=== PATIENT | female | born 1975 ===

== ENCOUNTER 2018-02-22 14:44 | Emergency (ER) | payer BC ==
--- NOTE | 2018-02-22 15:49 | ED ---
Lower Extremity - HPI Summary HPI Summary: Ms. Madden is concerned that she was bitten by something on the back of her left lower leg. It started out as itchy with a rober and has gradually become erythematous and painful. She denies any chest pain or shortness of breath - History of Current Complaint Chief Complaint: UCLowerExtremity Stated Complaint: leg swollen Time Seen by Provider: 02/22/18 15:39 Hx Last Menstrual Period: 01/13/18 Pain Intensity: 6 - Allergies/Home Medications Allergies/Adverse Reactions: Allergies Allergy/AdvReac Type Severity Reaction Status Date / Time No Known Allergies Allergy Verified 02/22/18 15:03 PMH/Surg Hx/FS Hx/Imm Hx Previously Healthy: Yes Endocrine/Hematology History: Denies: Hx Diabetes, Hx Thyroid Disease Cardiovascular History: Denies: Hx Hypertension Respiratory History: Denies: Hx Asthma, Hx Chronic Obstructive Pulmonary Disease (COPD) GI History: Denies: Hx Ulcer - Surgical History Surgery Procedure, Year, and Place: c section Infectious Disease History: No Infectious Disease History: Denies: Hx Hepatitis, Hx Human Immunodeficiency Virus (HIV), Traveled Outside the in Last 30 Days - Social History Alcohol Use: Occasionally Substance Use Type: Reports: None Smoking Status (MU): Never Smoked Tobacco Review of Systems Constitutional: Negative Negative: Fever, Chills Cardiovascular: Negative Negative: Chest Pain Respiratory: Negative Negative: Shortness Of Breath Skin: Other - see HPI All Other Systems Reviewed And Are Negative: No Physical Exam - Summary Physical Exam Summary: She is nontoxic in appearance and her vital signs are stable. Triage Information Reviewed: Yes Vital Signs On Initial Exam: Initial Vitals Temp Pulse Resp BP Pulse Ox 98.2 F 86 18 128/80 99 02/22/18 14:59 02/22/18 14:59 02/22/18 14:59 02/22/18 14:59 02/22/18 14:59 Vital Signs Reviewed: Yes Appearance: Positive: Well-Appearing, No Pain Distress, Well-Nourished Skin: Positive: Warm, Skin Color Reflects Adequate Perfusion - On the superior aspect of her calf, she has a dark spot surrounded by 5 or 6 cm radius of erythema. This area is tender to palpation and indurated and there is no fluctuance., Dry Respiratory/Lung Sounds: Positive: Clear to Auscultation Cardiovascular: Positive: Normal Musculoskeletal: Positive: Normal Neurological: Positive: Normal Diagnostics - Vital Signs Vital Signs Temp Pulse Resp BP Pulse Ox 02/22/18 14:59 98.2 F 86 18 128/80 99 - Laboratory Lab Statement: Any lab studies that have been ordered have been reviewed, and results considered in the medical decision making process. Lower Extremity Course/Dx - Course Course Of Treatment: She looks to me like she is developing a cellulitis secondary to some sort of insect bite. There is no sign of an abscess at this time although it may develop. There is no evidence for DVT. - Diagnoses Provider Diagnoses: Cellulitis Discharge - Sign-Out/Discharge Documenting (check all that apply): Patient Departure All imaging exams completed and their final reports reviewed: Yes - Discharge Plan Condition: Stable Disposition: HOME Patient Education Materials: Cellulitis (ED) Referrals: No Primary Care Phys,NOPCP [Primary Care Provider] - Additional Instructions: Follow up here in 2-3 days for reevaluation please. - Billing Disposition and Condition Condition: STABLE Disposition: Home
== END 2018-02-22 16:00 | disposition home or self-care (01) ==
LOC: UCEAST 14:44
DX: L03.116 Cellulitis of left lower limb (principal)
CPT/HCPCS: 99202; G0463

== ENCOUNTER 2018-02-27 15:38 | Emergency (ER) | payer BC ==
[2018-02-27 15:55] VITALS: BP 129/82
[2018-02-27] MEDS ORDERED: Lidocaine 1% MPF wEPI 200,000* 30 ML SDV INJ ONE (16:09)
--- NOTE | 2018-02-27 16:15 | UC ---
Skin Complaint HPI - HPI Summary HPI Summary: 43 yo female with left leg swelling and pain x > 1 week Initially thought it was an insect bite because it itched She scratched it and developed an area of redness and swelling seen here and started on keflex on day 4 or 5 of keflex and she has not had improvement no f/c no n/v/d no hx of skin infection - History of Current Complaint Chief Complaint: UCLowerExtremity Time Seen by Provider: 02/27/18 16:02 Stated Complaint: L LEG PAIN Hx Obtained From: Patient Hx Last Menstrual Period: [id number] Onset/Duration: Gradual Onset, Lasting Days Skin Exposure Onset/Duration: Days Ago Timing: Constant Onset Severity: Mild Current Severity: Moderate Pain Intensity: 6 Pain Scale Used: 0-10 Numeric Location: Other - left calf Character: Swelling, Pain, Redness Aggravating Factor(s): Touch Alleviating Factor(s): Nothing Associated Signs & Symptoms: Positive: Tenderness. Negative: Nausea, Vomiting, Numbness, Thirst, Diaphoresis, Weakness, Pallor, Shivering, Difficulty Breathing , Fever, Chills, Cough, Wheezing, Chest Pain, Hoarseness, Throat Tightening, Rash, Abdominal Pain, Lightheadedness, Syncope, Drainage, Bruising, Red Streaks , Joint Swelling - Allergy/Home Medications Allergies/Adverse Reactions: Allergies Allergy/AdvReac Type Severity Reaction Status Date / Time No Known Allergies Allergy Verified 02/27/18 15:56 Home Medications: Home Medications Ibuprofen TAB* [Motrin TAB* 400 MG] 400 mg PO Q6H PRN 02/27/18 [History Confirmed 02/27/18] Review of Systems All Other Systems Reviewed And Are Negative: Yes Constitutional: Positive: Negative Skin: Positive: Rash Eyes: Positive: Negative ENT: Positive: Negative Respiratory: Positive: Negative Cardiovascular: Positive: Negative Gastrointestinal: Positive: Negative Genitourinary: Positive: Negative Motor: Positive: Negative Neurovascular: Positive: Negative Musculoskeletal: Positive: Negative Neurological: Positive: Negative Psychological: Positive: Negative PMH/Surg Hx/FS Hx/Imm Hx Previously Healthy: Yes - Surgical History Surgical History: Yes Surgery Procedure, Year, and Place: c section - Family History Known Family History: Positive: Hypertension - Social History Alcohol Use: None Substance Use Type: None Smoking Status (MU): Never Smoked Tobacco Physical Exam Triage Information Reviewed: Yes Appearance: Well-Appearing, No Pain Distress, Well-Nourished Vital Signs: Initial Vital Signs Temp 97.9 F 02/27/18 15:49 Pulse 79 02/27/18 15:49 Resp 16 02/27/18 15:49 BP 129/82 02/27/18 15:49 Pulse Ox 100 02/27/18 15:49 Vital Signs Reviewed: Yes Eyes: Positive: Conjunctiva Clear ENT: Positive: Hearing grossly normal. Negative: Nasal drainage, TMs normal, Trismus, Muffled voice, Dental tenderness Neck: Positive: Supple Respiratory: Positive: No respiratory distress, No accessory muscle use Cardiovascular: Positive: RRR Neurological: Positive: Alert Psychological Exam: Normal Skin Exam: Other - see image Course/Dx - Diagnoses Provider Diagnoses: cellulitis left calf. ? early abscess Procedures - Procedure Summary Procedure Summary: INCISION AND DRAINAGE LEFT CALF procedure explained/any questions answered Time out sterile prep anesth with 2 cclidoc epi small incison with 11 blade no pus culture obtained sterile dressing applied Discharge - Sign-Out/Discharge Documenting (check all that apply): Patient Departure All imaging exams completed and their final reports reviewed: No Studies - Discharge Plan Condition: Stable Disposition: HOME Prescriptions: Sulfamethox/Trimethoprim DS* [Bactrim DS 800/160 TAB*] 1 tab PO BID #14 tab Patient Education Materials: Cellulitis (ED), Warm Compress or Soak (ED) Referrals: No Primary Care Phys,NOPCP [Primary Care Provider] - Additional Instructions: apply heat (warm compress or heating pad) 3-4 x day for 5-10 minutes elevate when you can IF SWELLING OR PAIN WORSENS GO TO THE EMERGENCY ROOM IF YOU DEVELOP A FEVER GO TO THE EMERGENCY ROOM IF NOT SIGNIFICANTLY IMPROVED IN 48-72 HOURS GO TO THE EMERGENCY ROOM I attempted to incise and drain this did not get any pus sent a culture If not improving or if you get worse you may need an ultrasound to see if you have a collection of pus (abscess) - Billing Disposition and Condition Condition: STABLE Disposition: Home Images Front/Back of Body, Lg ([place]): 1 - erthema/swelling. central area of induration about 3x3cm, not fluctuant, no varices, no popliteal tenderness or venous cords, + warmth
[2018-02-27] MEDS ORDERED: Sulfamethox/Trimethoprim DS 800/160* TAB PO ONE (16:39)
--- NOTE | 2018-03-02 15:22 | UC ---
- Progress Note Progress Note: Wound culture left leg MRSA negative, staph aureus negative Gram stain: 1+ neutrophil, 1+ epithelial cells , possible 1+ gram-positive cocci Wound culture: No growth day 2 Patient on Bactrim, no change in plan Discharge - Sign-Out/Discharge Documenting (check all that apply): Post-Discharge Follow Up All imaging exams completed and their final reports reviewed: No Studies - Discharge Plan Condition: Stable Disposition: HOME Prescriptions: Sulfamethox/Trimethoprim DS* [Bactrim DS 800/160 TAB*] 1 tab PO BID #14 tab Patient Education Materials: Cellulitis (ED), Warm Compress or Soak (ED) Referrals: No Primary Care Phys,NOPCP [Primary Care Provider] - Additional Instructions: apply heat (warm compress or heating pad) 3-4 x day for 5-10 minutes elevate when you can IF SWELLING OR PAIN WORSENS GO TO THE EMERGENCY ROOM IF YOU DEVELOP A FEVER GO TO THE EMERGENCY ROOM IF NOT SIGNIFICANTLY IMPROVED IN 48-72 HOURS GO TO THE EMERGENCY ROOM I attempted to incise and drain this did not get any pus sent a culture If not improving or if you get worse you may need an ultrasound to see if you have a collection of pus (abscess) - Billing Disposition and Condition Condition: STABLE Disposition: Home
== END 2018-02-27 17:00 | disposition home or self-care (01) ==
LOC: UCEAST 15:38
DX: L03.116 Cellulitis of left lower limb (principal)
CPT/HCPCS: 10060; 87070; 87205; 87640; 87641; 99212; A9270-GY; G0463; J2001